=== PATIENT | male | born 1955 | race Caucasian/White ===

== ENCOUNTER 2019-08-04 16:14 | Inpatient (IN) | payer MEDICARE, OTHER ==
[~2019-08-04] VITALS: Ht 170.2 cm; Wt 59.4 kg
[2019-08-04] MEDS ORDERED: OLAN15TA3 PO (16:47)
[2019-08-04] MEDS ORDERED: LORA-259 PO (16:47)
[2019-08-04] MEDS ORDERED: FLUT16SP BNOSTRILS (16:47)
[2019-08-04] MEDS ORDERED: IBUP-1953 PO (16:47)
[2019-08-04] MEDS ORDERED: CARB15DR63 OT (16:47)
[2019-08-04] MEDS ORDERED: ENOX40DI SUBCUT (16:47)
[2019-08-04] MEDS ORDERED: ACET-73 PO (16:47)
[2019-08-04] MEDS ORDERED: ALBU8.5H8 INH (16:48)
[2019-08-04] MEDS ORDERED: PHENOL (16:48)
[2019-08-04] MEDS ORDERED: IPRA12.9 INH (16:48)
[2019-08-04] MEDS ORDERED: GUAI-671 PO (16:48)
[2019-08-04] MEDS ORDERED: ALBU90AE2 PO (16:48)
[2019-08-04 16:53] LABS: CARBON DIOXIDE 31 mmol/L (21-32); CHLORIDE 104 mmol/L (98-107); CREATININE 0.8 mg/dL (0.6-1.3); GLUCOSE 109 mg/dL (74-106); UREA NITROGEN, BLOOD 8 mg/dL (7-18)
[2019-08-04 16:56] LABS: BASOPHILS % (AUTO) 0.6 % (0.0-2.0); EOSINOPHILS # (AUTO) 0.2 K/uL (0.0-0.7); EOSINOPHILS % (AUTO) 1.9 % (0.0-7.0); HEMATOCRIT 41.8 % (36.7-47.1); LYMPHOCYTES % (AUTO) 11.6 % (20.5-51.5); MEAN CORPUSCULAR HEMOGLOBIN 30.4 uug (23.8-33.4); MEAN CORPUSCULAR HGB CONC 33 g/dL (32.5-36.3); MEAN CORPUSCULAR VOLUME 90.9 fL (73.0-96.2); MONOCYTES # (AUTO) 0.8 K/uL (2.0-10.0); MONOCYTES % (AUTO) 9.3 % (0.0-11.0); NEUTROPHILS # (AUTO) 6.4 K/uL (1.8-8.9); NEUTROPHILS % (AUTO) 76.6 % (38.5-71.5); PLATELET COUNT (AUTO) 218 K/uL (152-348); WHITE BLOOD COUNT (AUTO) 8.4 K/uL (3.6-10.2)
[2019-08-04 16:58] LABS: ETHANOL < 3 MG/DL (0-0)
--- NOTE | 2019-08-04 17:00 | NUR ---
Patient has been medically cleared by Dr. Sanders
--- NOTE | 2019-08-04 17:05 | NUR ---
Pt. admitted to [facility] , under care of Dr. Casillas / Suad Quispe List completed, MRSA swab done
[2019-08-04 17:07] LABS: ACETAMINOPHEN < 2.0 ug/mL (10-30); ALANINE AMINOTRANSFERASE 20 U/L (16-63); ALKALINE PHOSPHATASE 75 U/L (50-136); ASPARTATE AMINOTRANSFERASE 33 U/L (15-37); BILIRUBIN,DIRECT 0.1 mg/dL (0.0-0.2); BILIRUBIN,TOTAL 0.2 mg/dL (0.2-1.0); TOTAL PROTEIN, SERUM 7.1 g/dL (6.4-8.2)
[2019-08-04] MEDS ORDERED: BLOOD SUGAR DIAGNOSTIC 1 EACH STRIP VI ONE (17:30)
[2019-08-04] MEDS ORDERED: MAG HYDROX/AL HYDROX/SIMETH 30 ML LIQUID UDC PO PRN (17:30)
[2019-08-04] MEDS ORDERED: MAGNESIUM HYDROXIDE 30 ML LIQUID UDC PO PRN (17:30)
[2019-08-04] MEDS ORDERED: ZOLPIDEM 5 MG TABLET PO PRN (17:30)
[2019-08-04 17:31] VITALS: BP 130/76
[2019-08-04] MEDS ORDERED: ALBUTEROL SULFATE 8 GM HFA.AER.AD INH PRN (17:45)
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
[2019-08-04] MEDS ORDERED: ACETAMINOPHEN ES 500 MG TABLET PO SCH (18:00)
[2019-08-04] MEDS ORDERED: OLANZAPINE 10 MG VIAL IM ONE (18:45)
--- NOTE | 2019-08-04 18:46 | NUR ---
called and spoke with [facility] regarding patients MAR , SNF will fax it over, will follow up
[2019-08-04] MEDS ORDERED: ALBUTEROL SULFATE 2.5 MG/ 0.5 ML NEBU NEB PRN (20:30)
[2019-08-04 20:42] VITALS: BP 132/74
[2019-08-04] MEDS ORDERED: IPRATROPIUM BROMIDE 12.9 GM INHALER INH SCH (21:00)
--- NOTE | 2019-08-04 22:00 | NUR ---
received to care, lying in bed, easily agitated, but pleasant upon approach. continues to have multiple somatic complaints. PRN medications offered for pain or anxiety or insomnia, but he declined. as of 2199, he continues to sleep. no distress noted.
[2019-08-04] MEDS: ALBUTEROL SULFATE 2.5 MG/3 ML NEBU NEB PRN (23:01)
[2019-08-04] MEDS: IPRATROPIUM BROMIDE 0.5 MG/2.5 ML NEBU NEB PRN (23:01)
--- NOTE | 2019-08-05 00:58 | NUR ---
remains awake, and restless. continues to refuse PRN medications. will continue to monitor closely.
[2019-08-05] MEDS: LORAZEPAM 1 MG TABLET PO PRN ×2 (01:16→21:42)
--- NOTE | 2019-08-05 01:16 | NUR ---
PRN ativan given for agitation/ anxiety
--- NOTE | 2019-08-05 02:25 | NUR ---
appears calmer, now. continues to yell intermittently.
[2019-08-05 08:01] VITALS: BP 119/75
--- NOTE | 2019-08-05 11:00 | NUR ---
Received patient in bed, pleasant. No distress noted. NO SI/HI noted. NO complain of Pain or discomfort. Patient had a shower today. Kept clean and comfortable. Will continue to monitor.
[2019-08-05] MEDS: DULOXETINE 30 MG CAPSULE.DR PO SCH (12:36)
[2019-08-05] MEDS: ALBUTEROL SULFATE 2.5 MG/3 ML NEBU NEB PRN ×2 (13:57→22:16)
[2019-08-05] MEDS: IPRATROPIUM BROMIDE 0.5 MG/2.5 ML NEBU NEB PRN ×2 (13:57→22:16)
--- NOTE | 2019-08-05 14:21 | NUR ---
Social Work Initial Discharge Planning: [place] [address]; ([phone]). This field underwriter spoke with Harika frederick ([phone]) who stated that patient is not welcomed back due to not being able to care for patient. western tack assembly line worker will work the patient and the MD regarding appropriate discharge planning. western tack assembly line worker will form a safe and proper discharge.
--- NOTE | 2019-08-05 14:21 | NUR ---
Social Work Family Contact: Patient does not have any family members per pt's Harika admin from [facility] ([phone]) stated that patient is self-responsible.
[2019-08-05] MEDS: DIVALPROEX 250 MG TABLET.DR PO SCH (16:52)
--- NOTE | 2019-08-05 16:53 | NUR ---
Patient refused depakote PO, Verbalizing he never take that medication before, explained benefits and consequences x 3, patient still refused.
[2019-08-05 20:00] VITALS: BP 129/68
[2019-08-05] MEDS: OLANZAPINE 5 MG TABLET PO SCH (20:34)
--- NOTE | 2019-08-05 22:30 | NUR ---
received to care, lying in bed, sleeping intermittently, but easily agitated. multiple somatic complaints. refused his bedtime dose of zyprexa initially, but took it, with some encouragement. he became more agitated, yelling and difficult to redirect. PRN ativan was given at 2141. as of 2229, he appears to be asleep. no distress noted. will continue to monitor closely.
[2019-08-06] MEDS: ALBUTEROL SULFATE 2.5 MG/3 ML NEBU NEB PRN ×2 (05:25→22:45)
[2019-08-06] MEDS: IPRATROPIUM BROMIDE 0.5 MG/2.5 ML NEBU NEB PRN ×2 (05:25→22:45)
--- NOTE | 2019-08-06 06:21 | NUR ---
slept 7 hours, total. had 2 breathing tx over the course of the night. several episodes of yelling , but was directable. as of 0600, he appears asleep. no distress noted.
[2019-08-06 07:30] VITALS: BP 112/61
[2019-08-06] MEDS: OLANZAPINE 5 MG TABLET PO SCH ×2 (08:10→21:33)
[2019-08-06] MEDS: DIVALPROEX 250 MG TABLET.DR PO SCH ×2 (08:10→16:36)
[2019-08-06] MEDS: DULOXETINE 30 MG CAPSULE.DR PO SCH ×2 (08:10→08:15)
[2019-08-06 10:27] LABS: PHOSPHOROUS 2.9 mg/dL (2.5-4.9)
[2019-08-06 10:35] LABS: THYROID STIMULATING HORMONE 0.255 mIU/mL (0.358-3.740)
[2019-08-06] MEDS: LORAZEPAM 1 MG TABLET PO PRN (12:24)
--- NOTE | 2019-08-06 14:27 | NUR ---
Social Work Coordination of Care: [place] [address]; ([phone]). This press writer spoke with Harika frederick ([phone]) who stated that patient is not accepted back.
--- NOTE | 2019-08-06 14:34 | NUR ---
Social Work Individual Therapy: torpedo worker met with patient for brief counseling to address patient's aggressive and combative behavior. Patient is not cooperative with this commercial real estate underwriter. Patient is unable to have proper eye contact with this commercial real estate underwriter. Patient continuously states that "he is in pain" and has been yelling. Patient is unable to have a meaningful conversation with this commercial real estate underwriter. This commercial real estate underwriter will attempt to meet with patient for brief counseling again.
[2019-08-06 15:29] VITALS: BP 118/83
[2019-08-06 20:15] VITALS: BP 137/86
[2019-08-07 07:30] VITALS: BP 109/58
[2019-08-07] MEDS: DIVALPROEX 250 MG TABLET.DR PO SCH ×2 (09:00→17:00)
[2019-08-07] MEDS: OLANZAPINE 5 MG TABLET PO SCH ×2 (09:47→20:12)
[2019-08-07] MEDS: ENSURE ENLIVE (VAN) 240 ML LIQUID PO SCH (17:18)
[2019-08-07 19:31] LABS: *BILIRUBIN,URIN NEGATIVE (NEGATIVE); *BLOOD, URINE NEGATIVE (NEGATIVE); *CLARITY,URINE CLEAR (CLEAR); *COLOR,URINE YELLOW (YELLOW); *KETONES,URINE NEGATIVE (NEGATIVE); *UROBILINOGEN,URINE 0.2 E.U./dl (NORMAL); LEUKOCYTE ESTERASE ,URINE NEGATIVE (NEGATIVE); NITRITE, URINE NEGATIVE (NEGATIVE); UGLUCOSE NEGATIVE (NEGATIVE)
[2019-08-07] MEDS: IPRATROPIUM BROMIDE 0.5 MG/2.5 ML NEBU NEB PRN (19:33)
[2019-08-07] MEDS: ALBUTEROL SULFATE 2.5 MG/3 ML NEBU NEB PRN (19:33)
[2019-08-07 20:04] VITALS: BP 144/84
[2019-08-08 07:30] VITALS: BP 97/70
[2019-08-08] MEDS: ENSURE ENLIVE (VAN) 240 ML LIQUID PO SCH ×2 (08:00→17:34)
[2019-08-08] MEDS: DIVALPROEX 250 MG TABLET.DR PO SCH ×2 (09:00→17:00)
[2019-08-08] MEDS: OLANZAPINE 5 MG TABLET PO SCH ×2 (09:21→20:37)
[2019-08-08] MEDS: LORAZEPAM 1 MG TABLET PO PRN ×2 (09:21→17:42)
--- NOTE | 2019-08-08 13:56 | NUR ---
GPS: Nursing Notes: Thought Disorder: Patient is awake and responding to his name, impaired judgment, overly demanding, needy behavior, constantly calling the nurse, anxious and labile affect, argumentative, resistant with nursing care, hyperverbal, ambulatory, self care, episode of shouting, sitting on the floor, poor grooming, unkempt appearance, V/S WNL, but complaining of SOB while shouting at staff, continue to monitor for safety, continue to refuse his Depakote medication, stated "No my doctor discontinue the medication", redirected and reoriented during shift, but continue to refuse Depakote, unable to formulate a plan for self care, continue with treatment plan.
[2019-08-08 15:45] VITALS: BP 96/50
[2019-08-08 20:12] VITALS: BP 120/75
[2019-08-08] MEDS: IPRATROPIUM BROMIDE 0.5 MG/2.5 ML NEBU NEB PRN (22:01)
[2019-08-08] MEDS: ALBUTEROL SULFATE 2.5 MG/3 ML NEBU NEB PRN (22:02)
--- NOTE | 2019-08-09 06:32 | NUR ---
Received Pt in bed screaming that he needed a wheelchair despite him being independently ambulatory. Pt then got out of bed and began to squat on the floor for unknown reasons. Pt's behavior is bizarre and hyper-somatic, constantly states he "can't breathe" despite Pt breathing even and unlabored, his O2 sat and RR being WNL, with no wheezing noted. RT was called and gave him a breathing treatment as requested. Pt refused prn pain and anti-anxiety medications, stating his problems "are not mental." Pt verbally abusive toward staff when limits are set, and called this rewriter a "bitch." Episodes of unprovoked yelling and screaming, very needy and demanding. Pt noted to be disheveled and malodorous, Pt initially agreed to a shower, then refused stating the shower "was not clean enough" to his standards, while sitting on an unclean floor. VS stable.
[2019-08-09 07:30] VITALS: BP 111/75
[2019-08-09] MEDS: ENSURE ENLIVE (VAN) 240 ML LIQUID PO SCH ×2 (08:00→17:00)
[2019-08-09] MEDS: LORAZEPAM 1 MG TABLET PO PRN (08:07)
[2019-08-09] MEDS: ACETAMINOPHEN 325 MG TABLET PO PRN (08:20)
[2019-08-09] MEDS: OLANZAPINE 5 MG TABLET PO SCH (08:20)
[2019-08-09] MEDS: TRAMADOL HCL 50 MG TABLET PO PRN (08:21)
[2019-08-09] MEDS: DIVALPROEX 250 MG TABLET.DR PO SCH (08:23)
[2019-08-09] MEDS ORDERED: HYDROXYZINE PAMOATE 25 MG CAPSULE PO PRN (08:45)
[2019-08-09] MEDS ORDERED: OLANZAPINE 5 MG TABLET PO SCH (09:00)
--- NOTE | 2019-08-09 09:41 | NUR ---
Social Work Coordination of Care: site worker sent referral to [facility] ([phone]) to [facility]. This casualty underwriter sent patient's H & P psychiatric notes and medication list. Per , he will review clinicals and will contact this casualty underwriter.
[2019-08-09 15:23] VITALS: BP 117/69
[2019-08-09] MEDS: ALBUTEROL SULFATE 2.5 MG/3 ML NEBU NEB PRN (18:27)
[2019-08-09] MEDS: IPRATROPIUM BROMIDE 0.5 MG/2.5 ML NEBU NEB PRN (18:27)
[2019-08-09 20:21] VITALS: BP 113/70
[2019-08-09] MEDS: OLANZAPINE 2.5 MG TABLET PO SCH (20:28)
[2019-08-10 07:45] VITALS: BP 142/90
[2019-08-10] MEDS: ENSURE ENLIVE (VAN) 240 ML LIQUID PO SCH ×2 (08:00→16:47)
[2019-08-10] MEDS: OLANZAPINE 2.5 MG TABLET PO SCH (08:23)
[2019-08-10] MEDS: ACETAMINOPHEN 325 MG TABLET PO PRN (08:24)
[2019-08-10] MEDS ORDERED: diphenhydrAMINE 50 MG CAPSULE PO PRN (08:45)
[2019-08-10] MEDS ORDERED: OLANZAPINE 2.5 MG TABLET PO SCH (09:00)
--- NOTE | 2019-08-10 13:12 | NUR ---
Social Work Coordination of Care: This personal lines underwriter faxed patient's clinicals H & P psychiatric notes and medication list to Manfred frederick from [facility] ([phone]) (F: [phone]) and will review patient's clinicals. This personal lines underwriter faxed patient's clinicals H & P psychiatric notes and medication list to [facility] ([phone]) and will review patient's clinicals.
--- NOTE | 2019-08-10 13:40 | NUR ---
Social Work Coordination of Care: This medical underwriter faxed patient's clinicals H & P psychiatric notes and medication list to Manfred frederick from [facility] ([phone]) (F: [phone]) and they refused pt stating that he is not the right fit. This medical underwriter faxed patient's clinicals H & P psychiatric notes and medication list to [facility] ([phone]) and reviewed patient's clinicals and stated that this patient has been here before and they do not want to accept him.
--- NOTE | 2019-08-10 14:29 | NUR ---
GPS: Nursing Notes: Thought Disorder: Patient is awake and responding to his name, poor impulse control, manipulative behavior, saying one thing to one staff and another thing to another staff, resistant with nursing care, shouting "I am here for my [place] and Percocet..", after talking to the psychiatrist came out his room stating "I am feeling suicidal..", refusing to shower, episodes of going to the trash bag. When asked what is he doing stated "It is not your business..", redirected during shift, but continue to be resistant with nursing care, calling patient's Rights - Liban Gray and stating to her "I am still feeling suicidal..", staff informed charge nurse of Patient's Rights information, continue to monitor for safety, loud and pressured speech, disorganized, argumentative, unable to formulate a viable plan for self care, continue with treatment plan.
[2019-08-10 15:06] VITALS: BP 139/60
[2019-08-10] MEDS: ALBUTEROL SULFATE 2.5 MG/3 ML NEBU NEB PRN (15:16)
[2019-08-10] MEDS: IPRATROPIUM BROMIDE 0.5 MG/2.5 ML NEBU NEB PRN (15:16)
--- NOTE | 2019-08-10 15:52 | NUR ---
Social Work Coordination of Care: face worker spoke with Sd nursing faculty from [facility] ([phone]) who stated that they are willing to accept patient back 07/14/19.
--- NOTE | 2019-08-10 16:11 | NUR ---
Social Work Coordination of Care: Patient is accepted to [facility] ([phone]).
--- NOTE | 2019-08-10 17:20 | NUR ---
spoke with labs regarding UA CS result, Hanna Granados tech says that the result maybe contaminated and suggested to ask if the MD can order a repeat
--- NOTE | 2019-08-10 17:28 | NUR ---
spoke with Dr. Jacques, re the UA result, with orders made to repeat UA CS, assign nurse aware
[2019-08-10 20:11] VITALS: BP 103/55
[2019-08-10] MEDS: OLANZAPINE 5 MG TABLET PO SCH (20:52)
--- NOTE | 2019-08-10 21:59 | NUR ---
Received pt resting in bed. Able to take due meds after couple of times of encouragement and teaching. Pt started being rude to staff and having flight of ideas. Pt has been squatting on the floor near the nursing station and noted to be angry and rudely talking to staff. Tried to calmly talk to pt and redirected but pt unable to follow commands. Safety measures maintained. Will continue to monitor.
[2019-08-11] MEDS: ACETAMINOPHEN 325 MG TABLET PO PRN (05:39)
[2019-08-11] MEDS: ALBUTEROL SULFATE 2.5 MG/3 ML NEBU NEB PRN (05:59)
[2019-08-11] MEDS: IPRATROPIUM BROMIDE 0.5 MG/2.5 ML NEBU NEB PRN (05:59)
[2019-08-11 07:30] VITALS: BP 118/71
[2019-08-11] MEDS: OLANZAPINE 5 MG TABLET PO SCH ×2 (08:00→20:16)
[2019-08-11] MEDS: ENSURE ENLIVE (VAN) 240 ML LIQUID PO SCH ×2 (08:01→16:07)
[2019-08-11] MEDS: GABAPENTIN 100 MG CAPSULE PO SCH ×3 (08:33→16:07)
--- NOTE | 2019-08-11 11:24 | NUR ---
Social Work Coordination of Care: Patient is accepted at [facility] ([phone]). Addendum: 08/11/19 at 1501 by JORGE FERRELL This automobile and property underwriter was informed that patient lost his bed at [facility].
--- NOTE | 2019-08-11 15:01 | NUR ---
Social Work Coordination of Care: Patient is accepted to [facility] ([phone]). This handbook writer spoke with Michael frederick who reviewed patient's clinicals and stated that patient is accepted.
[2019-08-11 16:00] VITALS: BP 109/58
--- NOTE | 2019-08-11 19:30 | NUR ---
RECEIVED PT IN NO ACUTE DISTRESS. PT PLEASANT WHEN APPROACHED. PT EASILY IRRITATED. SAFETY AND COMFORT PROVIDED. WILL CONTINUE TO MONITOR.
[2019-08-11] MEDS: NITROFURANTOIN/NITROFURAN MAC 100 MG CAPSULE PO SCH (20:16)
[2019-08-11] MEDS: TRAMADOL HCL 50 MG TABLET PO PRN (20:26)
[2019-08-11 20:35] VITALS: BP 101/54
--- NOTE | 2019-08-12 01:09 | NUR ---
ULTRAM WASTED WITH A NURSE FOR WITNESS. PT STATED HE DOESN'T WANT ULTRAM [place]HOUGH HE SAID HE IS IN PAIN AND THE MEDICATION WAS OPENED ALREADY. PT HYPERVERBAL AND ASKING ABOUT HIS MEDICATIONS. WILL CONTINUE TO MONITOR.
--- NOTE | 2019-08-12 06:15 | NUR ---
PT SLEPT 5.45 HOURS. PT IN NO ACUTE DISTRESS. PT HAD EPISODES OF STATING HE "CAN'T BREATHE" DESPITE PT BREATHING EVEN AND UNLABORED, HIS OXYGEN SATURATION AND RR BEING WNL, WITH NO WHEEZING NOTED. PT HAS SOMATIC PAINS BUT DOESN'T WANT TO TAKE ANY PAIN MEDICATIONS AND ANTIANXIETY MEDICATION. ULTRAM AND VISTARIL RETURNED IN THE MEDICATION BIN. PT IN NO ACUTE RESPIRATORY DISTRESS. BENADRYL GIVEN AT 2248H FOR SLEEP PRESCRIBED. PRESCRIBED MEDICATION GIVEN AND PT TOLERATED IT WELL. ALL NEEDS ARE MET. SAFETY AND COMFORT PROVIDED. WILL ENDORSE TO INCOMING NURSE FOR CONTINUITY OF CARE.
[2019-08-12 07:55] VITALS: BP 127/70
[2019-08-12] MEDS: ENSURE ENLIVE (VAN) 240 ML LIQUID PO SCH ×2 (08:00→17:00)
[2019-08-12] MEDS: OLANZAPINE 5 MG TABLET PO SCH ×2 (08:48→20:32)
[2019-08-12] MEDS: NITROFURANTOIN/NITROFURAN MAC 100 MG CAPSULE PO SCH ×2 (08:49→20:32)
[2019-08-12] MEDS: GABAPENTIN 100 MG CAPSULE PO SCH ×3 (08:49→16:21)
--- NOTE | 2019-08-12 11:38 | NUR ---
Gps/Burrer Marker Axle- Tends to sit , squatting on the floor, on the hallway, instructed and encouraged to sit in his chair, and attend group therapy.
--- NOTE | 2019-08-12 13:48 | NUR ---
Social Work Individual Therapy: drapery worker met with patient for brief counseling to address patient's aggressive and combative behavior. Patient is not cooperative with this group underwriter. Patient is uncooperative with this group underwriter and is verbally abusive. Patient is fixated on discharge and wants to be discharged to "[facility]". Patient is unable to listen to this group underwriter and is unable to have a meaningful conversation. This group underwriter was unable to provide brief counseling for patient.
--- NOTE | 2019-08-12 13:50 | NUR ---
Social Work Note/PC Hearing Notification: tea plantation worker contacted patient's Jade ([phone]) and notified patients probable cause of hearing today. Addendum: 08/12/19 at 1352 by JORGE FERRELL Social Work Note/PC Hearing Notification: tea plantation worker contacted patient's Jade ([phone]) and notified patients probable cause of hearing today.
--- NOTE | 2019-08-12 13:51 | NUR ---
Wrong note for different patient. Addendum: 08/12/19 at 1352 by JORGE FERRELL Disregard note
--- NOTE | 2019-08-12 13:51 | NUR ---
Social Work Note/PC Hearing Notification: Patient does not have any family members at this moment to contact and notify patient's probable cause of hearing today.
[2019-08-12 15:53] VITALS: BP 130/82
--- NOTE | 2019-08-12 16:22 | NUR ---
Gps/Recording Studio Set Up Worker- Patient making some noise, and calling out when asked if he needs something , claimed he did, but forgets, will reminds staff lated. Patient also tends to sqaat on the floor, middle to the hallway, discouraged from doing so, encouraged participating in his group tx.
--- NOTE | 2019-08-12 16:32 | NUR ---
Gps/Tailings Man- Patient complained of SOB, requesting nebulizer tx by R.T. , was informed. 94% 02 sat., sitting upright .
[2019-08-12] MEDS: IPRATROPIUM BROMIDE 0.5 MG/2.5 ML NEBU NEB PRN (16:45)
[2019-08-12] MEDS: ALBUTEROL SULFATE 2.5 MG/3 ML NEBU NEB PRN (16:45)
[2019-08-12 21:14] VITALS: BP 101/60
[2019-08-13 07:30] VITALS: BP 111/69
[2019-08-13] MEDS: ENSURE ENLIVE (VAN) 240 ML LIQUID PO SCH ×2 (08:59→16:47)
[2019-08-13] MEDS: NITROFURANTOIN/NITROFURAN MAC 100 MG CAPSULE PO SCH ×2 (09:12→20:45)
[2019-08-13] MEDS: GABAPENTIN 100 MG CAPSULE PO SCH ×3 (09:12→16:44)
[2019-08-13] MEDS: OLANZAPINE 5 MG TABLET PO SCH ×2 (09:14→20:46)
--- NOTE | 2019-08-13 13:17 | NUR ---
Social Work Coordination of Care: This telegraphic typewriter operator contacted [facility] ([phone]) and stated that they do not take psych patient's. This telegraphic typewriter operator contacted [facility] ([phone]) and they stated that they do not take psych patient's.
--- NOTE | 2019-08-13 13:19 | NUR ---
Social Work Note: This automobile service writer spoke with patient and discussed patient's discharge plan. Patient agreed to be discharged to [facility].
[2019-08-13 15:01] VITALS: BP 98/61
--- NOTE | 2019-08-13 16:09 | NUR ---
Gps/Flight Engineer Inspector-Patient requesting breathing treatment by Christiano , wants it admnister while in the activity room, discouraged from doing so, went back to his room to have Neb. treatment .
[2019-08-13] MEDS: IPRATROPIUM BROMIDE 0.5 MG/2.5 ML NEBU NEB PRN (16:21)
[2019-08-13] MEDS: ALBUTEROL SULFATE 2.5 MG/3 ML NEBU NEB PRN (16:21)
[2019-08-13 20:23] VITALS: BP 110/61
--- NOTE | 2019-08-13 23:49 | NUR ---
GPS: PT NOTED RESTING IN BED DURING INITIAL ROUND. A/OX2, NO S/S OF ACUTE DISTRESS, NO SOB OR C/O DIFFICULTY BREATHING EPISODE AT THIS TIME. PT WAS COOPERATIVE WITH ROUTINE MEDICATIONS. PT HAD X1 EPISODE OF EXAGGERATED BEHAVIOR BY WALKING TO NURSING STATION AND SIT IN A SQUAT POSITION AND WAS JUST RANTING. ADVISED PT TO VENT HIS FEELING AND REDIRECTED TO REALITY. PT LATER WALKED BACK TO TV ROOM AND CALAMED WATCHING TV. CONTINUE MONITOR AND Q/15MINS CHECK ONGOING.
[2019-08-14] MEDS: IPRATROPIUM BROMIDE 0.5 MG/2.5 ML NEBU NEB PRN ×2 (03:05→17:26)
[2019-08-14] MEDS: ALBUTEROL SULFATE 2.5 MG/3 ML NEBU NEB PRN ×2 (03:05→17:26)
[2019-08-14 07:30] VITALS: BP 111/66
[2019-08-14] MEDS: ENSURE ENLIVE (VAN) 240 ML LIQUID PO SCH ×2 (08:00→17:21)
[2019-08-14] MEDS: GABAPENTIN 100 MG CAPSULE PO SCH ×3 (09:26→17:21)
[2019-08-14] MEDS: OLANZAPINE 5 MG TABLET PO SCH ×2 (09:26→21:14)
[2019-08-14] MEDS: NITROFURANTOIN/NITROFURAN MAC 100 MG CAPSULE PO SCH ×2 (09:27→21:14)
[2019-08-14 16:00] VITALS: BP 122/74
--- NOTE | 2019-08-14 17:00 | NUR ---
Gps/Acquisition Manager -Requested breathing treatment, c/o SOB, had neb. tx given by RRonald adequate 02 sat.95% , Claimed he cant walk requested wheel chair to go back to his room, .Reassure pt. he's walking well, and can walk back to his room, for R.T. to provide neb. tx.
[2019-08-14 20:00] VITALS: BP 116/68
[2019-08-14] MEDS: TRAMADOL HCL 50 MG TABLET PO PRN (21:13)
--- NOTE | 2019-08-15 05:54 | NUR ---
Received Pt wheeling up and down the hallway in his wheelchair. Needy and demanding with medications, snacks, and the TV remote. Pt verbally abusive toward staff when limits are set. Denies SI/HI. 8/10 generalized pain effectively controlled with Ultram 50mg. VS stable. Pt is manipulative, gamey, malingering, and hyper-somatic. Pt demanded "cough syrup with codeine" for a non-existent cough. Pt became angry and verbally abusive toward this casualty underwriter when hot tea was offered. Pt went back to bed for a time, the awoke claiming he had "broken" his (L) leg in bed, and demanded to go to ER and get and X ray "Now!" (L) leg assessed, no deformity, swelling, redness, or tenderness noted, pulses palpable. Pt was observed walking to the bathroom without difficulty just after his complaint. Pt then demanded [place], and told this casualty underwriter to "fuck off" when offered Tramadol. Pt eventually went back to his room and fell asleep. Slept 3.45 hours. Refused shower.
[2019-08-15] MEDS: ENSURE ENLIVE (VAN) 240 ML LIQUID PO SCH ×2 (08:00→17:43)
[2019-08-15] MEDS: GABAPENTIN 100 MG CAPSULE PO SCH ×3 (09:00→17:03)
[2019-08-15] MEDS: NITROFURANTOIN/NITROFURAN MAC 100 MG CAPSULE PO SCH ×2 (09:00→22:23)
[2019-08-15] MEDS: OLANZAPINE 5 MG TABLET PO SCH ×2 (09:00→22:23)
[2019-08-15 09:05] VITALS: BP 111/63
--- NOTE | 2019-08-15 13:05 | NUR ---
Gps/Learning Support Specialist- Patient was well informed of his Covid test that was ordered by Dr Casillas needed prior dc.. Oral swab was done.
[2019-08-15 15:17] VITALS: BP 124/83
--- NOTE | 2019-08-15 17:03 | NUR ---
Gps/Research And Development Director- Demanding to call Medical Doctor claimed he needed CXR he thinks he have pneumonia . Requesting a breathing treatment to be administered while he is in the middle of the hallway.Patient is afebrile., no chest pain, noted. Occ. dry coughing, noted.
[2019-08-15] MEDS: ALBUTEROL SULFATE 2.5 MG/3 ML NEBU NEB PRN (17:22)
[2019-08-15] MEDS: IPRATROPIUM BROMIDE 0.5 MG/2.5 ML NEBU NEB PRN (17:22)
[2019-08-15 21:03] VITALS: BP 121/61
--- NOTE | 2019-08-15 22:30 | NUR ---
RECEIVED PATIENT IN BED SLEEPING BUT EASILY AROUSABLE. HE WAS UNABLE TO HAVE A MEANINGFUL CONVERSATION WITH THIS FARM TRACTOR MECHANIC. LATER, HE WAS SEEN ON THE DAY ROOM. HE WAS NOTED A/O X 2 ABLE TO COMPLY WITH MEDICATION REGIMENT. HE IS NOTED ATTENTION SEEKER, MOOD IS IRRITABLE, AFFECT IS LABILE. PATIENT IS SOMEWHAT REDIRECTABLE./ V/S STABLE AT THIS TIME. PT IS REASSURED FOR HIS SAFETY. SAFETY AND FALL PRECAUTION IN PLACE. WILL CONTINUE TO MONITOR.
[2019-08-16 08:00] VITALS: BP 100/61
[2019-08-16] MEDS: OLANZAPINE 5 MG TABLET PO SCH ×2 (08:36→21:00)
[2019-08-16] MEDS: NITROFURANTOIN/NITROFURAN MAC 100 MG CAPSULE PO SCH ×2 (08:36→21:00)
[2019-08-16] MEDS: GABAPENTIN 100 MG CAPSULE PO SCH ×3 (08:36→18:00)
[2019-08-16] MEDS: ENSURE ENLIVE (VAN) 240 ML LIQUID PO SCH ×2 (08:36→17:00)
[2019-08-16] MEDS: TRAMADOL HCL 50 MG TABLET PO PRN ×2 (11:49→23:34)
--- NOTE | 2019-08-16 15:28 | NUR ---
Social Work Note: Patient has been constantly going back and forth with this chart writer. Patient is not accepting guidance or re-direction from this chart writer. packing room worker attempts to discuss discharge planning with patient, however, patient rambles and speaks over to this chart writer. packing room worker attempted 5 times to re-direct patient and provide him information that he is requesting. Patient begins to request unrelated things to the discussion such as "Get my shoes, get my clothes, get my debit card". Patient accuses social work job titles of lying to him stating you "never called those facilities". packing room worker provided of the nursing facilities facilities that he had requested such as [facility]. This chart writer explained that social work job titles spoke with admins and they stated that "this is not a psychiatric facility". Patient is unable to understand.
[2019-08-16 16:26] VITALS: BP 141/87
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
[2019-08-17] MEDS: ENSURE ENLIVE (VAN) 240 ML LIQUID PO SCH ×2 (08:00→16:43)
[2019-08-17] MEDS: NITROFURANTOIN/NITROFURAN MAC 100 MG CAPSULE PO SCH ×3 (09:00→20:47)
[2019-08-17] MEDS: GABAPENTIN 300 MG CAPSULE PO SCH ×3 (09:00→16:43)
[2019-08-17] MEDS ORDERED: GABAPENTIN 100 MG CAPSULE PO SCH (09:00)
[2019-08-17] MEDS: OLANZAPINE 5 MG TABLET PO SCH ×3 (09:00→20:47)
[2019-08-17] MEDS: ALBUTEROL SULFATE 2.5 MG/3 ML NEBU NEB PRN (13:06)
[2019-08-17 15:46] VITALS: BP 116/75
[2019-08-17 20:20] VITALS: BP 106/65
--- NOTE | 2019-08-18 01:03 | NUR ---
GPS: PT IN BED DURING INITIAL ROUND ASLEEP BUT AWAKE TO NAME. A/OX2, NO ACUTE DISTRESS, NO SOB OR C/O DIFFICULTY BREATHING EPISODE. PT WAS COOPERATIVE WITH ROUTINE MEDICATIONS. PT HAD X1 EPISODE OF BEHAVIOR WITH C/O NOT ABLE TO WALK BECAUSE OF HIS LEGS ARE DIEING, REDIRECT AND ADVISED PT TO VENT HIS FEELING AND REALITY ORIENTED. PT SAYS LN TV ROOM AND NO NEW C/O NOTED. CONTINUE MONITOR AND Q/15MINS CHECK ONGOING. Addendum: 08/18/19 at 0645 by NOEMÍ ELIZABETH RN PT WAS FINE UNTIL ABOUT 0400, AWAKE AND STARTED SAYING THE ROOM WAS TOO COLD, WE ARE CAUSING HIM NECK PAIN, STOMACH PAIN, ON AND ON. PT STARTED YELLING AND WAKING UP OTHER PTS, REALITY ORIENTATION DONE BUT WAS NOT EFFECTIVE. O2SAT AT 96 R/A. LET PT VENT AND FINALLY CALMED AND WENT TO BED.
[2019-08-18 07:30] VITALS: BP 102/68
[2019-08-18] MEDS: ENSURE ENLIVE (VAN) 240 ML LIQUID PO SCH (08:00)
[2019-08-18] MEDS: OLANZAPINE 5 MG TABLET PO SCH (08:05)
[2019-08-18] MEDS: NITROFURANTOIN/NITROFURAN MAC 100 MG CAPSULE PO SCH (08:05)
[2019-08-18] MEDS: GABAPENTIN 300 MG CAPSULE PO SCH ×2 (08:05→12:25)
--- NOTE | 2019-08-18 10:40 | NUR ---
Discharge Note: Pt will be discharged to [facility] ([facility]) located at [address] [place] [address]; . Pt will be placed in Rm 12B. Pt will be picked up via [facility] at 1300. Pt does not have any family for the SW to contact regarding this discharge. Upon discharge, pt appears to be alert and oriented x4 (time, place, self and situation). Pt appears to be in a labile mood and presents with an agitated affect. Pt denied both suicidal and homicidal ideation as well as auditory and visual hallucinations. Pt appears to be disheveled and ungroomed. Pt is nonambulatory and transports himself via wheelchair. Pt will be under the care of his psychiatrist, Dr. Byron Nash, located at [address], [address] [place] [address]; and will be under the care of motorcoach operator, Dr. Jesús Edmonds, located at [address] [place] [address]; .
--- NOTE | 2019-08-18 11:09 | NUR ---
Pt will be discharged to [facility] . Pt will be picked up via [facility] at 1300 pm. Pt appears to be in a labile mood and presents with an agitated affect. Pt denied both suicidal and homicidal ideation as well as auditory and visual hallucinations. Pt appears to be disheveled and un groomed. Pt is nonambulatory and transports himself via wheelchair. Pt will be under the care of his psychiatrist, Dr. Byron Nash. report given to Agustina ARSHAD from [facility].all personal belonging return to pt.
[2019-08-18] MEDS: IPRATROPIUM BROMIDE 0.5 MG/2.5 ML NEBU NEB PRN (11:17)
[2019-08-18] MEDS: ALBUTEROL SULFATE 2.5 MG/3 ML NEBU NEB PRN (11:17)
--- NOTE | 2019-08-18 13:19 | NUR ---
[facility] Contact: JORGE spoke to Gosia Puente ([phone]) from the Department of Mental Health and explained to her that the pt is being discharged today and informed her of the facility information. She stated that she will follow up with the pt the following day once he is at the facility.
--- NOTE | 2019-08-31 10:31 | NUR ---
Social Work Firearms Report ([employer]): Electrician Supervisor Substation completed and submitted a [employer] firearms report for 5150 DTSO certification. A copy of report has been placed in patient chart.
== END 2019-08-18 14:00 | DRG 885 ==
LOC: ER 16:17 → GPS 17:10
PROVIDERS: ADMIT Psychiatry & Neurology Psychiatry; ATTEND Nurse Practitioner Acute Care
DX: F25.0 Schizoaffective disorder, bipolar type (principal); F23 Brief psychotic disorder; J45.909 Unspecified asthma, uncomplicated; R73.9 Hyperglycemia, unspecified; F19.10 Other psychoactive substance abuse, uncomplicated; E88.81 Metabolic syndrome and other insulin resistance
CPT/HCPCS: 36415; 80329; 83735; 84100; 84443; 84481; 85025; 87077; 87086; 93005; 94640; 94664; A4663; G0480; G0480-TC; J2358; J3490; J3590; Q0163; U0003-CS